=== PATIENT | male | born 1960 | race Hispanic/Latino ===

== ENCOUNTER 2017-10-28 22:37 | Observation (INO) | payer BC ==
[~2017-10-28] VITALS: Ht 180.3 cm; Wt 90.4 kg
[2017-10-28] MEDS ORDERED: LISINOPRIL10 MG PO (22:58)
[2017-10-28] MEDS ORDERED: FENOFIBRATE145 MG PO (22:58)
[2017-10-28] MEDS ORDERED: CRESTOR10 MG PO (22:58)
[2017-10-28] MEDS ORDERED: SYNTHROID100 MCG PO (22:58)
[2017-10-28] MEDS ORDERED: METFORMIN HCL500 M2 PO (22:58)
[2017-10-28] MEDS ORDERED: MORPHINE SULFATE 2 MG/ML SYR IV STA (23:06)
[2017-10-28] MEDS ORDERED: LABETALOL HCL 5 MG/ML 20ML VIAL IV STA (23:06)
[2017-10-28] MEDS ORDERED: ONDANSETRON HCL INJ 2 MG/ML VIAL IV STA (23:06)
[2017-10-28] MEDS ORDERED: ASPIRIN 81 MG CHEW TAB PO ONE (23:15)
[2017-10-28 23:32] LABS: BASOPHILS % 0.5 % (0.0-1.0); EOSINOPHILS # (AUTO) 0.3 (0.0-0.4); EOSINOPHILS % 4.3 % (0.0-6.0); HEMOGLOBIN 13.8 g/dL (14.0-18.0); LYMPHOCYTES # (AUTO) 2.1 (1.0-3.2); LYMPHOCYTES % 34.7 % (18.0-39.1); MEAN CORPUSCULAR HEMOGLOBIN 32.5 pg (28-32); MEAN CORPUSCULAR HGB CONC 35.4 g/dL (31-35); MEAN CORPUSCULAR VOLUME 91.8 fL (81-99); MONOCYTES # (AUTO) 0.6 (0.2-0.8); MONOCYTES % 10.2 % (4.4-11.3); NEUTROPHILS % 49.5 % (38.7-80.0); PLATELET COUNT 320 x10e3/uL (140-360); RED BLOOD COUNT 4.25 x10e6/uL (4.3-5.7); RED CELL DISTRIBUTION WIDTH 12.6 % (11.7-14.4)
[2017-10-28 23:39] LABS: BILIRUBIN,URINE NEGATIVE (NEGATIVE); CLARITY,URINE CLEAR (CLEAR); COLOR,URINE YELLOW (YELLOW); KETONES,URINE NEGATIVE (NEGATIVE); LEUKOCYTE ESTERASE ,URINE NEGATIVE (NEGATIVE); NITRITE,URINE NEGATIVE (NEGATIVE); URINE UROBILINOGEN 0.2 mg/dL (0.2 - 1)
[2017-10-28 23:40] LABS: PROTEIN,URINE DIPSTICK 1+ (NEGATIVE)
[2017-10-28 23:40] LABS: INR 0.99; PROTHROMBIN TIME 12.3 seconds (11.9-14.5)
[2017-10-28 23:41] LABS: PARTIAL THROMBOPLASTIN TIME 24.8 seconds (23.8-35.5)
[2017-10-28 23:48] LABS: ALANINE AMINOTRANSFERASE 33 IU/L (0-55); ALBUMIN 4.2 g/dL (3.5-5.0); ALKALINE PHOSPHATASE 80 IU/L (40-150); ANION GAP 14.5 mmol/L (8-16); BLOOD UREA NITROGEN 16 mg/dL (7-26); BUN/CREATININE RATIO 18 (6-25); CALCIUM 9.6 mg/dL (8.4-10.2); CARBON DIOXIDE 24 mmol/L (22-29); CHLORIDE 105 mmol/L (98-107); CREATINE KINASE 52 IU/L (30-200); CREATININE, SERUM 0.89 mg/dL (0.72-1.25); EST GLOMERULAR FILTRATION RATE > 60 ML/MIN (60-); GLUCOSE 147 mg/dL (74-118); MAGNESIUM 2.1 MG/DL (1.3-2.1); POTASSIUM 3.5 mmol/L (3.5-5.1); SODIUM 140 mmol/L (136-145)
[2017-10-28 23:50] LABS: RBC,URINE 0-5 /HPF (0-5); WBC,URINE (MAN) 0-5 /HPF (0-5)
--- NOTE | 2017-10-28 23:57 | Diagnostic Imaging Report ---
EXAM: CHEST SINGLE (PORTABLE), AP 1 view INDICATION: Left-sided chest pain COMPARISON: None FINDINGS: LINES/TUBES: None LUNGS: No consolidations or edema. PLEURA: No effusions or pneumothorax. HEART AND MEDIASTINUM: Normal size and contour. BONES AND SOFT TISSUES: No acute findings. IMPRESSION: No acute thoracic abnormality. Signed by: Dr. Guadalupe Valenzuela M.D. on 10/28/2017 11:53 PM
[2017-10-29] VITALS (7 sets, daily range): BP systolic 124–141; BP diastolic 65–81
--- NOTE | 2017-10-29 00:01 | Diagnostic Imaging Report ---
EXAMINATION: Head CT without contrast. HISTORY:Headache, hypertension. COMPARISON:None. TECHNIQUE: Multidetector axial images were obtained from the foramen magnum to the vertex without contrast. The images were reconstructed using brain and bone algorithms. Thin section brain images were reformatted into coronal and sagittal planes. Intravenous contrast: None IMAGE QUALITY: Acceptable. FINDINGS: Skull/scalp: No lytic or blastic. lesions. No surgical changes. Parenchyma: Focal hypodensity in right paramedian aspect of the diana represents an old lacunar infarct. No acute hemorrhage, mass or acute major vascular territorial infarct. Arteries: No density suggestive of thrombosis. Dural sinuses: No abnormal density suggestive of thrombosis. Ventricles: No hydrocephalus or displacement. Extra-axial spaces: No abnormal density. Brain volume: Moderate generalized cerebral volume loss, advanced for patient's given age. Craniocervical junction: No mass, Chiari malformation, or basilar invagination. Sella: No mass. Paranasal/mastoid sinuses: Under pneumatization and sclerosis of left mastoid air cells possibly related to chronic inflammatory process. IMPRESSION: 1. No acute intracranial abnormality, particularly no acute hemorrhage, mass or acute major vascular territorial infarct. 2. Old lacunar infarct in the diana. 3. Moderate generalized cerebral volume loss, advanced for patient's given age. Signed by: Dr. Vilma Brock M.D. on 10/28/2017 11:58 PM
[2017-10-29 00:27] LABS: THYROID STIMULATING HORMONE 14.869 uIU/mL (0.350-4.940)
[2017-10-29 00:46] LABS: AMPHETAMINES SCREEN,URINE NEGATIVE (NEGATIVE); BENZODIAZEPINES SCREEN,URINE NEGATIVE (NEGATIVE); PHENCYCLIDINE SCREEN,URINE NEGATIVE (NEGATIVE)
[2017-10-29] MEDS ORDERED: NITROGLYCERIN 2% OINT 1 GM PKT TOP ONE (01:00)
[2017-10-29] MEDS ORDERED: MORPHINE SULFATE 2 MG/ML SYR IV PRN (02:15)
[2017-10-29] MEDS ORDERED: DEXTROSE 50% SYRINGE 50 ML IV PRN ×2 (02:15→07:30)
[2017-10-29] MEDS ORDERED: ACETAMINOPHEN 325 MG TAB PO PRN (02:15)
[2017-10-29] MEDS ORDERED: ONDANSETRON HCL INJ 2 MG/ML VIAL IV PRN (02:15)
--- OUTSIDE RECORDS SUMMARY | 2017-10-29 02:25 | XMS REPORT ---
Author [facility] Address Unknown Phone Unavailable Care Team Providers Care Forestry [employer] Aide Name Role Phone BHUPINDER IRIS Unavailable Unavailable Problems This patient has no known problems. Allergies, Adverse Reactions, Alerts This patient has no known allergies or adverse reactions. Medications This patient has no known medications. Results Test Description Test Time Test Comments Text Results Atomic Results Result Comments CHEST SINGLE (PORTABLE) [place] [address] Patient Name: CORKY MATOS MR #: [id number] : 1960 Age/Sex: 57/M Req #: [id number] Adm Physician: Ordered by: IRIS ROE MD Report #: [id number] Location: ER Room/Bed: Procedure: [id number] DX/CHEST SINGLE (PORTABLE) Exam Date: Exam Time: REPORT STATUS: Signed EXAM: CHEST SINGLE (PORTABLE), AP 1 view INDICATION: Left-sided chest pain COMPARISON: None FINDINGS: LINES/ TUBES: None LUNGS: No consolidations or edema. PLEURA: No effusions or pneumothorax. HEART AND MEDIASTINUM: Normal size and contour. BONES AND SOFT TISSUES: No acute findings. IMPRESSION: No acute thoracic abnormality. Signed by: Dr. Jillian Valenzuela M.D. on 2017 11:53 PM Dictated By: JILLIAN VALENZUELA MD 2353 Transcribed By: TITO on 10/28/172352 COPY TO: IRIS ROE MD CT BRAIN WO [place] [address] Patient Name: CORKY MATOS MR # : [id number] : 1960 Age/Sex: 57/M Req #: [id number] Adm Physician: Ordered by: IRIS ROE MD Report #: [id number] Location: ER Room/Bed: Procedure: [id number] CT/CT BRAIN WO Exam Date: Exam Time: REPORT STATUS : Signed EXAMINATION: Head CT without contrast. HISTORY:Headache, hypertension. COMPARISON:None. TECHNIQUE: Multidetector axial images were obtained from the foramen magnum to the vertex without contrast. The images were reconstructed using brain and bone algorithms. Thin section brain images were reformatted into coronal and sagittal planes. Intravenous contrast: None IMAGE QUALITY: Acceptable. FINDINGS: Skull/scalp: No lytic or blastic. lesions. No surgical changes. Parenchyma: Focal hypodensity in right paramedian aspect of the diana represents an old lacunar infarct. No acute hemorrhage, mass or acute major vascular territorial infarct. Arteries: No density suggestive of thrombosis. Dural sinuses: No abnormal density suggestive of thrombosis. Ventricles: No hydrocephalus or displacement. Extra- axial spaces: No abnormal density. Brain volume: Moderate generalized cerebral volume loss, advanced for patient's given age. Craniocervical junction: No mass, Chiari malformation, or basilar invagination. Sella: No mass. Paranasal/mastoid sinuses: Under pneumatization and sclerosis of left mastoid air cells possibly related to chronic inflammatory process. IMPRESSION: 1. No acute intracranial abnormality, particularly no acute hemorrhage, mass or acute major vascular territorial infarct. 2. Old lacunar infarct in the diana. 3. Moderate generalized cerebral volume loss, advanced for patient's given age. Signed by: Dr. Vilma Brock M.D. on 10/28/2017 11:58 PM Dictated By: VILMA BROCK MD 57 Transcribed By: TITO on 10/28/172357 COPY TO: IRIS ROE MD
[2017-10-29] MEDS ORDERED: NITROGLYCERIN 2% OINT 1 GM PKT TOP SCH (06:00)
[2017-10-29] MEDS: HYDRALAZINE HCL 25 MG TAB PO SCH ×3 (07:00→17:40)
[2017-10-29] MEDS ORDERED: INSULIN REGULAR, HUMAN 100 UNIT/1 ML 3ML VIAL SQ SCH (07:30)
[2017-10-29] MEDS: INSULIN REGULAR, HUMAN 100 UNIT/1 ML 3ML VIAL SQ SCH ×4 (07:30→20:04)
--- NOTE | 2017-10-29 07:50 | History and Physical ---
PRIMARY CARE PHYSICIAN: Dr. Hernandez CHIEF COMPLAINT: Chest pain and elevated blood pressure. HISTORY OF PRESENT ILLNESS: A 57-year-old man with a history of hypertension and hypothyroidism, who recently had his thyroid medicine adjusted from 125 up to 200 last week by his primary care doctor, now developing chest discomfort on the left side. It is kind of a sharp discomfort with systolic blood pressure in the 180s. Therefore, he came to the hospital. In the emergency room, his blood pressure was as high as 202/102. The patient had associated headache and chest pain. Started on nitroglycerin patch and treated with IV labetalol. Admitted for further evaluation and management. Currently, the patient continues to have left-sided chest discomfort. He has never had a stress test before. Denies any nausea or vomiting. Denies any shortness of breath. There is no radiation of the pain. PAST MEDICAL HISTORY: Diabetes mellitus, type 2, stroke, hypothyroidism, hyperlipidemia, hypertriglyceridemia. PAST SURGICAL HISTORY: None. ALLERGIES: PER ELECTRONIC MEDICAL RECORD. FAMILY HISTORY/SOCIAL HISTORY: The patient is . He has 2 children. Occasional alcohol. Smokes cigarettes when he drinks. MEDICATIONS: Per electronic medical record. REVIEW OF SYSTEMS: Denies any dizziness or headache at this time. LABS: Reviewed. MEDICATIONS: Reviewed. ASSESSMENT AND PLAN: This is a 57-year-old man with: 1. Hypertensive emergency with headache: He was placed on nitroglycerin patch. Will start him on calcium channel sanjuanita and beta sanjuanita now. 2. Chest discomfort: Chest pain persists, even though the blood pressure has improved although there is less chest pain. He has never had a stress test before. He does have diabetes increasing of his risk of premature coronary artery disease. Therefore, will consult cardiology for evaluation. Will obtain a 2-D echocardiogram. 3. Diabetes mellitus, type 2: Will obtain hemoglobin A1c and lipid panel. 4. Hypothyroidism: TSH is elevated at 14.86. The patient says that his Synthroid was increased from 125 to 200 last week by his primary care doctor. Therefore, will obtain thyroid function testing. 5. Overweight state: Body mass index 28.3. Needs caloric restriction outpatient, which will improve diabetes profile. 6. Hyperlipidemia/hypertriglyceridemia: Obtain lipid panel. Will resume his fenofibrate and statin. 7. Prophylaxis: Will use Lovenox and Pepcid. 8. Disposition: Cardiology consultation. Echocardiogram. Job#: [id number] RI
[2017-10-29 07:58] LABS: CHOL/HDL RATIO 4.8 (3.9-4.7)
[2017-10-29] MEDS ORDERED: METFORMIN HCL 500 MG TAB CR PO SCH (08:00)
[2017-10-29] MEDS: NIFEDIPINE CR 30 MG TAB PO SCH ×2 (08:15→20:16)
[2017-10-29 08:17] LABS: CREATINE KINASE MB 0.9 ng/mL (0-5.0)
[2017-10-29 08:21] LABS: THYROID STIMULATING HORMONE 7.688 uIU/mL (0.350-4.940)
[2017-10-29] MEDS: LISINOPRIL 10 MG TAB PO SCH ×2 (08:29→17:38)
[2017-10-29] MEDS: ASPIRIN 81 MG ENTERIC COATED PO SCH (08:29)
[2017-10-29] MEDS: FAMOTIDINE 20 MG/2 ML VIAL IV SCH ×2 (08:29→20:15)
[2017-10-29] MEDS: LEVOTHYROXINE SODIUM 100 MCG TAB PO SCH (08:29)
[2017-10-29] MEDS: FENOFIBRATE 145 MG TAB PO SCH (08:30)
[2017-10-29] MEDS ORDERED: SIMVASTATIN 40 MG TAB PO SCH (09:00)
[2017-10-29] MEDS ORDERED: REGADENOSON 0.4 MG/5 ML SYR IV ONE ×2 (12:47→15:38)
--- NOTE | 2017-10-29 13:34 | Consultation ---
DATE OF CONSULTATION: October 29, 2017 ATTENDING PHYSICIAN: Dr. Abe Arias. Thank you so much for asking me to see this nice man in consultation. Mr. 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 HISTORY OF PRESENT ILLNESS: The patient recounts that his family doctor had recently increased his thyroid supplement. He reviewed his home medications and found that although he was prescribed lisinopril in August, he has not been taking the medicine since that time. He noted during the day on the that he had head fullness. PAST MEDICAL HISTORY: Significant for cerebrovascular accident about October of 2016 when he was hospitalized at [facility]. He reports it had some effect on his left-side arm and leg strength and left side of his face, but he reports that he has recovered quite well and he continues to work. He denies any other hospitalizations or surgeries. He tells me that diabetes runs in his family, and he takes a home medication combination of metformin, levothyroxine, fenofibrate, simvastatin. He has not been using the lisinopril, as mentioned above. PERSONAL AND SOCIAL HISTORY: The patient reports he has smoked in the past and continues to smoke sometimes, "not every day." FAMILY HISTORY: His mother is alive with diabetes. His father of gunshot wound. PHYSICAL EXAMINATION: GENERAL: Shows a pleasant, alert man. VITALS: Current blood pressure 139/65, although presenting blood pressure in the emergency room was 200/100. HEENT: Unremarkable. NECK: No jugular venous distention, no bruits. THORAX: Heart sounds S1 and S2 are equal, no murmurs. Lungs are clear. Chest nontender to palpation. ABDOMEN: Protuberant. Normal bowel sounds. EXTREMITIES: With no cyanosis, clubbing or edema. EKG shows sinus rhythm. Troponins are normal. Glucose 147. Potassium 3.5. A chest x-ray is unremarkable. ASSESSMENT: 1. Chest discomfort, etiology not clear. 2. Hypertension, uncontrolled on presentation. 3. Type 2 adult-onset diabetes. 4. Hyperlipidemia. 5. Previous cerebrovascular accident. PLAN: Agree with management of blood pressure and lipids. Will check echocardiogram and Lexiscan Myoview. Further management will be based on clinical course. Thank you for asking me to see him in consultation. Job#: [id number] EV
[2017-10-29] MEDS ORDERED: ENOXAPARIN SOD INJ 40 MG/0.4 ML SYR SC SCH (17:00)
[2017-10-29 18:29] LABS: CREATINE KINASE 38 IU/L (30-200)
[2017-10-29] MEDS ORDERED: SIMVASTATIN 20 MG TAB PO SCH (21:00)
[2017-10-30] VITALS (7 sets, daily range): BP systolic 124–136; BP diastolic 65–75
[2017-10-30] MEDS: HYDRALAZINE HCL 25 MG TAB PO SCH ×3 (00:35→11:59)
[2017-10-30] MEDS: LEVOTHYROXINE SODIUM 100 MCG TAB PO SCH (05:22)
[2017-10-30 06:49] LABS: CHOL/HDL RATIO 5.5 (3.9-4.7); CHOLESTEROL 126 MD/DL (0-199); HDL CHOLESTEROL 23 MG/DL (40-60); TRIGLYCERIDES 428 MG/DL (0-149)
[2017-10-30] MEDS: FAMOTIDINE 20 MG/2 ML VIAL IV SCH (08:38)
[2017-10-30] MEDS: INSULIN REGULAR, HUMAN 100 UNIT/1 ML 3ML VIAL SQ SCH ×2 (08:38→12:00)
[2017-10-30] MEDS: FENOFIBRATE 145 MG TAB PO SCH (08:39)
[2017-10-30] MEDS: ASPIRIN 81 MG ENTERIC COATED PO SCH (08:39)
[2017-10-30] MEDS: LISINOPRIL 10 MG TAB PO SCH (08:39)
[2017-10-30 09:39] LABS: CREATINE KINASE MB 0.8 ng/mL (0-5.0)
[2017-10-30] MEDS ORDERED: HYDRALAZINE HCL25 MG PO ×2 (15:39→16:59)
--- NOTE | 2017-10-30 17:25 | Cardiology Report ---
DATE OF STUDY: October 29, 2017 LEXISCAN MYOVIEW ATTENDING PHYSICIAN: Dr. Abe Arias. The patient had resting perfusion images after an injection of 11 mCi of technetium 99M Myoview. Later due to inability to exercises given Lexiscan 0.4 mg intravenously and shortly afterwards 32.8 mCi of technetium 99M Myoview. Perfusion images were taken by rotational tomography. Comparison of resting and Lexiscan stress images shows no evidence of any perfusion defect. Uptake is smooth and regular. No defects noted. Additionally gated wall-motion images were obtained and calculated ejection fraction normal at 50% without regional wall motion abnormalities. FINAL IMPRESSION 1. Normal Lexiscan Myoview perfusion. 2. Normal left ventricular function, calculated ejection fraction of 50%. Job#: [id number] PAT cc:Abe Arias MD
--- NOTE | 2017-10-31 09:07 | Progress Note ---
DATE: October 30, 2017 MEDICINE PROGRESS NOTE TIME: 03:50 p.m. SUBJECTIVE: No acute events overnight or the stay. Patient denies further chest pain or shortness of breath. Furthermore, denies nausea, vomiting, diarrhea, fatigue, or claudication. PHYSICAL EXAMINATION VITAL SIGNS: Temperature 96.9 oral, pulse 74, respiratory rate 20, BP 124/70, and pulse ox 95% on room air. Telemetry strip reviewed, noted normal sinus rhythm. GENERAL APPEARANCE: This is a tired-appearing man, resting supine in bed. HEENT: Normocephalic, atraumatic. CARDIOVASCULAR: No extra cardiac sounds appreciated, and regular rate and rhythm noted. LUNGS: Bilateral breath sounds clear to auscultation. ABDOMEN: Soft, nondistended, and nontender. EXTREMITIES: Moves all 4 extremities. Denies any calf pain. SKIN: Dry. PSYCHIATRIC: Patient with flat affect. LABS: WBC on October 28, 6.06, hemoglobin 13.8, hematocrit 39, and platelet counts 320. Chemistries on same day found the patient with a sodium of 140, potassium 3.5, chloride 105, carbon dioxide 24, gap of 14.5, BUN 16, and creatinine 0.89. TSH on October 28 was almost 15. The next days, the values were 7.7; thyroid functions were within normal range. MEDICATIONS 1. Regular insulin per sliding scale a.c. and at bedtime. 2. Hydralazine 50 mg q. 6 hours. 3. Lisinopril 10 mg p.o. b.i.d. 4. Fenofibrate 145 mg p.o. daily. 5. ASA 81 mg p.o. q.a.m. 6. Pepcid q. 12 hours IV. 7. Synthroid 200 mcg daily at 0600. 8. Zocor 10 mg p.o. at bedtime. 9. Nifedipine 30 mg at bedtime. 10. Prophylactic subcutaneous Lovenox 40 mg daily. 11. P.r.n. 650 mg Tylenol. 12. P.r.n. dextrose. 13. P.r.n. Zofran. 14. P.r.n. morphine sulfate. ASSESSMENT AND PLAN: This is a 57-year-old man with: 1. Hypertensive emergency with headache: Patient was treated on arrival with nitroglycerin patch and initiation of calcium channel sanjuanita and beta sanjuanita were provided. Over the last 24 hours, the patient's blood pressure has been with a systolic range of max systolic of 141 and a minimal systolic of 124. Patient verbalized he was not taking his lisinopril. Extensive education has been provided by staff about medication and compliance. 2. Chest discomfort, resolved. Cardiology is following. The patient with diabetes mellitus type 2 increasing his risk for coronary artery disease. Cardiology interpretation of stress test is pending. 3. Diabetes mellitus type 2: Hemoglobin A1c was 6 on arrival. Point of care glucose ranging from 116 to 147. 4. Hypothyroidism: TSH as per labs above. Synthroid was increased to 200 mcg per previous note by PCP. Thyroid functioning is normal per values. 5. Overweight state, BMI 28.3. Outpatient caloric restriction and counseling. 6. Hyperlipidemia and hypertriglyceridemia: Fenofibrate and statin resumed upon admission. Patient will continue with his fenofibrate and Zocor as outpatient. 1. Prophylaxis, Lovenox and Pepcid. 2. Disposition: Patient counseled this day concerning need to follow up with PCP and medication and recommendations upon discharge. Discharge pending approval from cardiology following interpretation of stress test completed the night previous. Dictated By: Andria Russo NP Job#: [id number] BO
--- NOTE | 2017-11-01 15:48 | Discharge Summary ---
PRIMARY DIAGNOSES 1. Hypertensive emergency with headache. 2. Angina, resolved. 3. Diabetes mellitus, type 2. 4. Hypothyroidism. 5. Overweight. Body mass index 28.3. 6. Hyperlipidemia. 7. Hypertriglyceridemia. HISTORY OF PRESENT ILLNESS: This is a 57-year-old man with a history of hypertension, hypothyroidism, who recently had his thyroid medication adjusted from 125 mcg to 200 mcg last week by his PCP. Upon presentation to the emergency room and 1 day prior, he had developed chest discomfort on the left side characterized as sharp with systolic BP of 180. Upon noting the elevated blood pressure, the patient presented to the emergency room. Upon presentation, blood pressure was 202/102 with associated headache and chest pain. IMAGING: Stress test, Lexiscan Myoview, chest x-ray, brain CT. HOSPITAL COURSE: Upon presentation on the evening of October 28, 2017, the patient with elevated BP of 202/102 and was treated with a nitroglycerin patch and IV labetalol. The patient was admitted that a.m. for further evaluation and management concerning his continued left-sided chest discomfort. Cardiology was consulted, and workup was initiated the following a.m. with stress test commencing the evening of October 29, 2017. On October 30, 2017, the patient was cleared by cardiology for discharge. The patient had resolution of blood pressure and chest pain. The patient was subsequently discharged in stable condition on the afternoon of Wednesday, October 30, 2017. DISCHARGE MEDICATIONS: The patient was discharged with medications of: 1. Fenofibrate 145 mg tab 1 p.o. daily. 2. Hydralazine 25 mg tab times 2 every 6 hours. 3. Levothyroxine 100 mcg tab 2 tabs p.o. daily. 4. Lisinopril 10 mg 1 p.o. b.i.d. 5. Metformin 500 mg p.o. q.a.m. 6. Pressor 10 mg tabs once p.o. daily. FOLLOWUP: The patient was instructed to follow up with primary care provider, Dr. Dagoberto Booth, within 3-4 days of discharge. Return to the hospital or other urgent care or emergent care provider should symptoms or elevated blood pressure persist. CONDITION ON DISCHARGE: The patient was stable and escorted via wheelchair to awaiting family transportation. Upon discharge, the patient voiced no concerns and denied no new complaints upon leaving the facility premises. DICTATED BY WYLAN W. JACINTO, MIX MAKER KUSUM SAN MD Job#: [id number] RI
== END 2017-10-30 16:00 | disposition home or self-care (01) ==
LOC: ER 22:37 → ERHOLD 10-29 02:22 → IMCU 10-29 02:30
PROVIDERS: ADMIT Internal Medicine; ATTEND Internal Medicine
DX: I16.1 Hypertensive emergency (principal); R07.9 Chest pain, unspecified; E03.9 Hypothyroidism, unspecified; R51 Headache; I10 Essential (primary) hypertension; E11.9 Type 2 diabetes mellitus without complications; E66.3 Overweight; E78.5 Hyperlipidemia, unspecified; Z68.28 Body mass index [BMI] 28.0-28.9, adult; Z86.73 Personal history of transient ischemic attack (TIA), and cerebral infarction without residual deficits; E78.1 Pure hyperglyceridemia
CPT/HCPCS: 36415 ×3; 70450; 71045; 78452; 80053; 80061 ×2; 80307; 81001; 82550 ×3; 82553 ×3; 82948 ×2; 83036; 83735; 84436; 84443 ×2; 84479; 84484 ×3; 85025; 85610; 85730; 93005; 93017; 93306; 99284; A9502; G0378 ×2; J1650; J2270; J2405

== ENCOUNTER 2018-06-06 11:29 | Emergency (ER) | payer BC ==
[~2018-06-06] VITALS: Ht 180.3 cm; Wt 90.3 kg
[~2018-06-06 11:29] MED LIST: CRESTOR10 MG PO; FENOFIBRATE145 MG PO; HYDRALAZINE HCL25 MG PO; LISINOPRIL10 MG PO; METFORMIN HCL500 M2 PO; SYNTHROID100 MCG PO
--- OUTSIDE RECORDS SUMMARY | 2018-06-06 11:32 | XMS REPORT | Summary of Care ---
Author Author [facility] Outpatient Imaging [facility] Outpatient Imaging [facility] Address Unknown Phone Unavailable Encounter HQ Encntr_alias(FIN) [id number] Date(s): 12/16/17 - 12/16/17 [facility] Outpatient Imaging [facility] [address] [place], [place] [address]- [phone] Discharge Disposition: Home or Self Care Attending Physician: Dagoberto Sethi MD Vital Signs No data available for this section Problem List No data available for this section Allergies, Adverse Reactions, Alerts No data available for this section Medications No data available for this section Results No data available for this section Immunizations No data available for this section Procedures No data available for this section Social History No data available for this section Assessment and Plan No data available for this section
--- OUTSIDE RECORDS SUMMARY | 2018-06-06 11:32 | XMS REPORT | Summary of Care ---
Author Author [facility] Outpatient Imaging [facility] Outpatient Imaging [facility] Address Unknown Phone Unavailable Encounter HQ Encntr_alias(FIN) [id number] Date(s): 12/16/17 - 12/16/17 [facility] Outpatient Imaging [facility] [address] [place], [place] [address]- [phone] Discharge Disposition: Home or Self Care Attending [...]
--- OUTSIDE RECORDS SUMMARY | 2018-06-06 11:32 | XMS REPORT | Continuity of Care Document ---
Author Author [facility] Interface Address Unknown Phone Unavailable Problems Problem Status Onset Date Classification Date Reported Comments Source E04.2 Active 03/30/2018 [facility] E03.9 - HYPOTHYROIDISM, UNSPECIFIED Active 11/04/2017 [facility] Medications Medication Details Route Status Patient Instructions Ordering Provider Order Date Source Allergies, Adverse Reactions, Alerts Substance Category Reaction Severity Reaction type Status Date Reported Comments Source Immunizations Immunization Date Given Site Status Last Updated Comments Source Results Order Name Results Value Reference Range Date Interpretation Comments Source Thyroid scan - Multiple uptakes NM Thyroid scan - Multiple uptakes NM Patient Name: CORKY MATOS : 1960; Age: 58 years y/o Male MR: [id number] Study: Thyroid scan - Multiple uptakes NM 04/18/2018 9:00 AM CDT Ordering Physician: Jamari Judge MD Comparison: Thyroid biopsy 12/16/2017 Clinical Indication: - Nontoxic multinodular goiter; The patient was administered 230 uCi I-123 orally with 6 hour uptake 1.2%. 24 hour uptake is 0.8%. Scintiphotos obtained in the anterior, ARMENIAN and NÚÑEZ position demonstrate focal patchy uptake at the inferior pole of the right thyroid lobe and minimal stippled uptake at the mid left thyroid lobe. IMPRESSION: 1. Severe diminished thyroid uptake at 6 and 24 hours with limited uptake at the thyroid gland. Differential considerations would include exogenous or excess iodine uptake, subacute thyroiditis or Kimi's disease. SL: [id number] 04/18/2018 - - Read by: Juanito Cruz MD Dictated Date/time: 04/19/18 09:28 Electronically Signed by: Juanito Cruz MD 04/19/18 09:55 FINAL REPORT [facility] Thyroid biopsy w guidance US Thyroid biopsy w guidance US Patient Name: CORKY MATOS : 1960; Age: 57 years y/o Male MR: [id number] Study: Thyroid biopsy w guidance US 12/16/2017 1:09 PM CDT Ordering Physician: Dagoberto Sethi MD Clinical Indication: Lobulated hypoechoic nodule in the mid to inferior pole of the left thyroid lobe measuring 3.3 x 1.5 x 1.3 seen containing a 7 mm hyperechoic focus similar to report from an outside examination although images are not available for review at this time. Comparison: None CONSENT: The risks and benefits of ultrasound guided thyroid biopsy including alternative forms of treatment and treatment were discussed with the patient. The patient indicated understanding, was allowed to ask questions, and signed a witnessed informed consent. Cleat Feeder: None needed. PROCEDURE: The patient was placed in the supine position with hyperextension of the neck as tolerated. Suitable access to the biopsy site was marked under ultrasound guidance. The area was prepared and draped in the usual sterile fashion. Local anesthesia of the skin was performed with administration of approximately 3 mL 1% lidocaine. Under continuous ultrasound guidance, 2 attempts at fine needle aspiration of the left thyroid nodule were made. The patient experienced 8/10 pain and coughing toward the end of the first attempt. He immediately experienced pain and coughing while entering for the second attempt. Biopsy was aborted. Samples were obtained during each pass and submitted to cytopathology for examination including prepared slides and washings. The patient's pain and decreased after application of an icepack to approximately 4/10. He also noted a left-sided headache. Post biopsy ultrasound performed after applying pressure for approximately 5 minutes demonstrated no evidence of significant hematoma, fluid collection, or vascular injury. The patient was instructed regarding postprocedural care and expectations. The patient was instructed to contact me at this facility, contact the requesting physician, or report to the nearest emergency department if any questions or concerns arise. IMPRESSION: Status post left thyroid nodule fine-needle aspiration as above discussed. The examination had to be aborted secondary to pain and coughing. The scant sample from the first pass was sent to the laboratory. No sample could be obtained on the second pass as the patient could not tolerate further FNA. The patient was instructed to call me at this compartment or his physician with any questions or concerns. He was also instructed to report to the emergency department should symptoms worsen or new symptoms developed. The biopsy may be reattempted under light sedation or anesthesia if indicated. SL: [id number] 12/16/2017 - - Read by: Sean Kendrick MD Dictated Date/time: 12/16/17 14:46 Electronically Signed by: Sean Kendrick MD 12/16/17 14:52 FINAL REPORT [facility] Vital Signs Vital Sign Value Date Comments Source Encounters Location Location Details Encounter Type Encounter Number Reason For Visit Attending Provider ADM Date DC Date Status Source [facility] Outpatient Imaging [facility] Outpt Diag Services [id number] Dagoberto Sethi 12/16/2017 12/17/2017 [facility] Outpatient [id number] ANJELICA BAIRES 04/21/[address] [facility] Outpatient [id number] ECHO VISIT 07/18/[address] [facility] Outpatient [id number] [facility] [facility] Procedures Procedure Code Date Perfomer Comments Source
--- NOTE | 2018-06-06 13:44 | Diagnostic Imaging Report ---
Left rib multiple views CPT code: 63232 History: Fell between rocks one week ago, left side pain Comparison: Chest x-ray 10/28/2017. Findings: The rib structures on the left appear intact. There is no evidence of acute displaced rib fracture or dislocation identified. Chest PA single view demonstrates no evidence of pleural effusion or pneumothorax. Visualized lung valentino are clear. IMPRESSION: No displaced rib fracture or dislocation. No evidence of pleural or pulmonary injury. Thank you for your referral. Signed by: Dr. Anita Faye MD on 06/06/2018 1:40 PM
== END 2018-06-06 14:57 | disposition home or self-care (01) ==
LOC: ER 11:29
DX: S20.212A Contusion of left front wall of thorax, initial encounter (principal); W01.0XXA Fall on same level from slipping, tripping and stumbling without subsequent striking against object, initial encounter; Y92.832 Beach as the place of occurrence of the external cause; I10 Essential (primary) hypertension; E11.9 Type 2 diabetes mellitus without complications; E78.5 Hyperlipidemia, unspecified; E07.9 Disorder of thyroid, unspecified; Z86.73 Personal history of transient ischemic attack (TIA), and cerebral infarction without residual deficits
CPT/HCPCS: 71101; 99283